=== PATIENT | female | born 2000 | race Caucasian/White ===

== ENCOUNTER → 2018-12-18 06:49 | Outpatient (CLI) | payer SELFPAY ==
[2018-12-18 07:43] LABS: Glucose 75GTT - Fasting 96 mg/dL (70-99)
[2018-12-18 07:55] LABS: Free T3 3.1 pg/mL (2.18-3.98); T4 Free Direct 0.94 ng/dL (0.76-1.46); Thyroid Stim Hormone (TSH) 5.14 uIU/mL (0.358-3.74)
[2018-12-18 09:16] LABS: Glucose 75GTT - 60 minutes 85 mg/dL (100-160)
[2018-12-18 09:20] LABS: Glucose 75GTT - 30 minutes 173 mg/dL (100-160)
[2018-12-18 09:20] LABS: Insulin 75GTT - Fasting 28.4 mU/L (2.6-37.6)
[2018-12-18 09:30] LABS: Insulin 75GTT - 60 min 219.6 mU/L (Not Estab)
[2018-12-18 10:42] LABS: Glucose 75GTT - 120 minutes 84 mg/dL (70-140)
[2018-12-18 10:52] LABS: Insulin 75GTT - 120 min 39.3 mU/L (Not Estab.)
[2018-12-19 11:00] LABS: Ferritin 30 ng/mL (8-252)
[2018-12-20 15:33] LABS: Thyroid Peroxidase AB 8 IU/mL (0-34)
[2018-12-20 15:53] LABS: Thyroglobulin Antibody < 1.0 IU/mL (0.0-0.9)
== END ==
PROVIDERS: Family Provider Pediatrics; PCP Pediatrics; Referring Provider Obstetrics & Gynecology; Visit Provider Obstetrics & Gynecology
DX: N91.4 Secondary oligomenorrhea (principal); R79.89 Other specified abnormal findings of blood chemistry; Z13.1 Encounter for screening for diabetes mellitus
CPT/HCPCS: 36415; 82728; 82951; 82952; 83525; 84439; 84443; 84481; 86376; 86800

== ENCOUNTER → 2018-12-25 09:28 | Outpatient (CLI) | payer SELFPAY ==
[2013-06-01 19:34] VITALS: BMI 32.2
[2018-12-25 11:40] LABS: Estradiol 30.9 pg/mL; Follicle Stimulating Hormone 5.7 mIU/mL; Free T3 2.8 pg/mL (2.18-3.98); Prolactin 17.1 ng/mL; T4 Free Direct 0.88 ng/dL (0.76-1.46); Thyroid Stim Hormone (TSH) 2.77 uIU/mL (0.358-3.74)
[2018-12-26 04:07] LABS: DHEA Sulfate 368.7 ug/dL (110.0-431.7)
[2018-12-26 16:45] LABS: Sex Hormone-binding Globulin 33.3 nmol/L (24.6-122.0)
[2018-12-28 15:10] LABS: 17-Hydroxyprogesterone 27 ng/dL (.)
== END ==
PROVIDERS: Family Provider Pediatrics; PCP Pediatrics; Referring Provider Obstetrics & Gynecology; Visit Provider Obstetrics & Gynecology
DX: N91.4 Secondary oligomenorrhea (principal); Z68.41 Body mass index [BMI] 40.0-44.9, adult; E03.9 Hypothyroidism, unspecified
CPT/HCPCS: 36415; 82533; 82627; 82670; 83001; 83498; 84146; 84270; 84403; 84439; 84443; 84481; 82626

== ENCOUNTER → 2019-08-08 07:53 | Outpatient (CLI) | payer SELFPAY ==
[2013-06-01 19:34] VITALS: BMI 32.2
[2019-08-08 09:31] LABS: Insulin 19.8 mU/L (2.6-37.6); Progesterone Level 10.24 ng/mL (See Comment)
[2019-08-08 09:34] LABS: Free T3 3.1 pg/mL (2.18-3.98); Glucose 97 mg/dL (74-106); Prolactin 32.6 ng/mL; Thyroid Stim Hormone (TSH) 2.24 uIU/mL (0.358-3.74)
[2019-08-09 15:48] LABS: Sex Hormone-binding Globulin 25.3 nmol/L (24.6-122.0)
== END ==
PROVIDERS: PCP Pediatrics; Referring Provider Obstetrics & Gynecology; Visit Provider Obstetrics & Gynecology
DX: E03.9 Hypothyroidism, unspecified (principal); N91.4 Secondary oligomenorrhea
CPT/HCPCS: 36415; 82627; 82947; 83525; 84144; 84146; 84270; 84439; 84443; 84481; 82626

== ENCOUNTER → 2020-03-10 13:23 | Outpatient (CLI) | payer SELFPAY ==
[2013-06-01 19:34] VITALS: BMI 32.2
[2020-03-10 14:50] LABS: Hematocrit 37.5 % (37-47); Hemoglobin 12.7 g/dL (12.0-15.0); Mean Corp Hgb Conc 33.9 g/dL (32-36); Mean Corpuscular Hgb 29.3 pg (27.0-32.0); Mean Corpuscular Volume 86.6 fL (81-99); Mean Platelet Vol. 9.3 fl (6.2-12.0); Platelet Count 347 K/mm3 (150-450); Red Blood Count 4.33 M/mm3 (4.2-5.4); White Blood Count 7.9 K/mm3 (4.4-11.0)
[2020-03-10 15:28] LABS: Ferritin 23 ng/mL (8-252); Iron 77 ug/dL (50-170)
== END ==
PROVIDERS: PCP Family Medicine; Referring Provider Internal Medicine Pulmonary Disease; Visit Provider Internal Medicine Pulmonary Disease
DX: G25.81 Restless legs syndrome (principal); G47.10 Hypersomnia, unspecified
CPT/HCPCS: 36415; 82728; 83540; 85027

== ENCOUNTER → 2020-09-24 16:18 | Outpatient (CLI) | payer SELFPAY ==
[2013-06-01 19:34] VITALS: BMI 32.2
[2020-09-24 17:37] LABS: Ferritin 23 ng/mL (8-252)
== END ==
PROVIDERS: PCP Family Medicine; Referring Provider Internal Medicine Pulmonary Disease; Visit Provider Internal Medicine Pulmonary Disease
DX: G25.81 Restless legs syndrome (principal); G47.10 Hypersomnia, unspecified
CPT/HCPCS: 36415; 82728

== ENCOUNTER → 2020-09-24 | Outpatient (CLI) | payer SELFPAY ==
[2013-06-01 19:34] VITALS: BMI 32.2
[2020-10-02 14:31] LABS: HPV APTIMA, High Risk Negative (Negative)
[2020-10-02 14:32] LABS: HPV Reflexed? YES, CHARGE PATIENT
== END | disposition home or self-care (01) ==
LOC: WOBLAB 16:36
PROVIDERS: PCP Family Medicine; Visit Provider Obstetrics & Gynecology
DX: Z12.4 Encounter for screening for malignant neoplasm of cervix (principal)
CPT/HCPCS: 87624; 88175; G0145

== ENCOUNTER → 2021-02-12 08:18 | Outpatient (CLI) | payer SELFPAY ==
[2013-06-01 19:34] VITALS: BMI 32.2
[2021-02-12 10:21] LABS: Ferritin 32 ng/mL (8-252)
== END ==
PROVIDERS: PCP Family Medicine; Referring Provider Internal Medicine Pulmonary Disease; Visit Provider Internal Medicine Pulmonary Disease
DX: E61.1 Iron deficiency (principal)
CPT/HCPCS: 36415; 82728

== ENCOUNTER → 2021-09-01 | Outpatient (CLI) | payer SELFPAY ==
[2021-09-01 11:15] LABS: Anion Gap 8 (5-15); BUN 15 mg/dL (7-18); BUN/Creat Ratio 23.3 RATIO (10-20); Calcium,Total 9.5 mg/dL (8.5-10.1); Chloride 105 mmol/L (98-107); Creatinine, Serum 0.64 mg/dL (0.55-1.02); EST Glomerular Filtration Rate 121 mL/min (>60); Est Glom Filt Rate - Afr Amer 147 mL/min (>60); Glucose 95 mg/dL (74-106); Potassium 3.9 mmol/L (3.5-5.1); Sodium Level 137 mmol/L (136-145)
[2021-09-01 12:07] LABS: Ferritin 24 ng/mL (8-252)
== END | disposition home or self-care (01) ==
PROVIDERS: PCP Family Medicine; Referring Provider Internal Medicine Pulmonary Disease; Visit Provider Internal Medicine Pulmonary Disease
DX: E61.1 Iron deficiency (principal); I10 Essential (primary) hypertension
CPT/HCPCS: 36415; 80048; 82728

== ENCOUNTER → 2022-05-25 | Outpatient (CLI) | payer SELFPAY ==
[2022-05-25 18:07] LABS: Estradiol 40.6 pg/mL; Luteinizing Hormone 2.1 mIU/mL; Progesterone Level 0.84 ng/mL (See Comment); Prolactin 16.5 ng/mL; T4 Free Direct 0.95 ng/dL (0.76-1.46); Thyroid Stim Hormone (TSH) 3.55 uIU/mL (0.358-3.74)
[2022-05-25 18:36] LABS: Hemoglobin A1c 5.6 % (3.8-5.6)
[2022-06-04 13:30] LABS: 17-Hydroxyprogesterone 25 ng/dL (.)
== END | disposition home or self-care (01) ==
LOC: WOBLAB 16:14
PROVIDERS: PCP Family Medicine; Visit Provider Student in an Organized Health Care Education/Training Program
DX: N93.9 Abnormal uterine and vaginal bleeding, unspecified (principal)
CPT/HCPCS: 36415; 82670; 83001; 83002; 83036; 83498; 84144; 84146; 84439; 84443

== ENCOUNTER → 2022-12-08 | Outpatient (CLI) | payer SELFPAY ==
[2022-12-08 11:10] LABS: Hematocrit 37.2 % (37-47); Hemoglobin 12.5 g/dL (12.0-15.0); Mean Corp Hgb Conc 33.6 g/dL (32-36); Mean Corpuscular Hgb 29.3 pg (27.0-32.0); Mean Corpuscular Volume 87.1 fL (81-99); Mean Platelet Vol. 9.1 fl (6.2-12.0); Platelet Count 322 K/mm3 (150-450); RBC Distribution Width CV 12.7 % (11.6-14.6); RBC Distribution Width SD 39.9 fl (35.1-43.9); Red Blood Count 4.27 M/mm3 (4.2-5.4); White Blood Count 6.3 K/mm3 (4.4-11.0)
[2022-12-08 11:42] LABS: Thyroid Stim Hormone (TSH) 2.09 uIU/mL (0.358-3.74)
== END | disposition home or self-care (01) ==
LOC: LAB 10:20
PROVIDERS: PCP Family Medicine; Referring Provider Family Medicine; Visit Provider Family Medicine
DX: N92.0 Excessive and frequent menstruation with regular cycle (principal)
CPT/HCPCS: 36415; 84443; 85027

== ENCOUNTER → 2023-07-25 | Outpatient (CLI) | payer OTHER, SELFPAY ==
[2023-07-25 13:10] LABS: Anion Gap 4 (5-15); BUN 13 mg/dL (7-18); Calcium,Total 9.5 mg/dL (8.5-10.1); Chloride 105 mmol/L (98-107); Creatinine, Serum 0.62 mg/dL (0.55-1.02); EST Glomerular Filtration Rate 125 mL/min (>60); Est Glom Filt Rate - Afr Amer 151 mL/min (>60); Glucose 91 mg/dL (74-106); Potassium 4.1 mmol/L (3.5-5.1); Sodium Level 137 mmol/L (136-145)
== END | disposition home or self-care (01) ==
LOC: LAB 11:18
PROVIDERS: PCP Family Medicine; Referring Provider Family Medicine; Visit Provider Family Medicine
DX: I10 Essential (primary) hypertension (principal)
CPT/HCPCS: 36415; 80048

== ENCOUNTER → 2025-01-22 | Outpatient (CLI) | payer OTHER, SELFPAY ==
--- OUTSIDE RECORDS SUMMARY | 2025-01-22 06:50 | XMS RPT_ITS | CCD ---
Author Organization [facility] Care Team Providers Care Promotions Director Name Role Phone CELINE LEONE MD Consulting Unavailable MURIEL GORDON Attending Unavailable MURIEL GORDON Primary Care Unavailable MURIEL GORDON Admitting Unavailable PROVIDER, UNKNOWN Consulting Unavailable TRACY GONZALEZ APRN, CNP Primary Care Phys [facility] TRACY GONZALEZ APRN, CNP Primary Care U nata AGUILAR MD, MACKENZIE Attending Unavailable LAUREN ARTEAGA, MACKENZIE Attending Unavailable TRACY GONZALEZ APRN, CNP Primary Care U nata AGUILAR MD, MACKENZIE Attending Unavailable ALFIE Ortiz CNP, TRACY Anne Primary Care U Bekah Kiser Referring Unavailable Brad Cotter Attending Unavailable Bekah Lopez Primary Care Unavailable Bekah Lopez Referring Unavailable Bekah Lopez Primary Care Unavailable Bekah Lopez Attending Unavailable ALFIE Ortiz CNP, TRACY Anne Primary Care U JEANCARLOS Nicole Attending Unavailable Medications Current Medications Medication Drug Class(es) Dates Sig (Normalized) Sig (Original) escitalopram 10 mg oral tablet (2 sources) Serotonin Reuptake Inhibitor Start: 02-28-2023 take 1 tablet by mouth once daily escitalopram 10 mg oral tablet TAKE ONE TABLET BY MOUTH DAILY Start Date: 02/28/23 Status: Ordered Repeat number: 1 ferrous sulfate (1 source) Start: 02-28-2023 ferrous sulfate Oral, 0 Refill(s) Start Date: 02/28/23 Status: Ordered fluticasone propionate 0.05 mg/actuat metered dose nasal spray (4 sources) Corticosteroid Start: 06-01-2013 Fluticasone Propionate Active 1 SPRAY NASAL DAILY June 01, 2013 1:00am lisinopril 10 mg oral tablet (2 sources) Angiotensin Converting Enzyme Inhibitor Start: 02-28-2023 take 1 tablet by mouth once daily lisinopril 10 mg oral tablet TAKE ONE TABLET BY MOUTH DAILY Start Date: 02/28/23 Status: Ordered Repeat number: 1 metFORMIN hydrochloride 500 mg oral tablet (3 sources) Biguanide Start: 10-04-2024 MetFORMIN (Eqv-Fortamet) 500 mg oral tablet, EXTENDED RELEASE Dose : 500 mg = 1 tab(s), Oral, qDay, Okay to substitute for generic Glucophage XR, # 90 tab(s), 3 Refill(s), Pharmacy: [facility], Oligomenorrhea Insulin resistance, 161, cm, 10/04/24 9:00:00 EDT, Height, kg, 10/04/24 9:00:00 EDT, Dosing Weight Start Date: 10/04/24 Status: Ordered Quantity: 90.0 Unit: tab(s) Repeat number: 4 Indications: Oligomenorrhea, unspecified; Insulin resistance, unspecified; Start: 05-25-2023 MetFORMIN (Eqv -Fortamet) 1000 mg oral tablet, EXTENDED RELEASE Dose : 1,000 mg = 1 tab(s), Oral, qDay, Okay to substitute for generic Glucophage XR, # 60 tab(s), 1 Refill(s), Pharmacy: [facility], Menorrhagia Insulin resistance, 161, cm, 05/25/23 8:40:00 EST, Height, kg, 05/25/23 8:40:00 EST, Dosing Weight Start Date: 05/25/23 Status: Ordered Start: 03-14-2023 MetFORMIN (Eqv -Glucophage XR) 500 mg oral tablet, EXTENDED RELEASE Dose : 500 mg = 1 tab(s), Oral, qDay, # 30 tab(s), 1 Refill(s), Pharmacy: [facility], Oligomenorrhea Menorrhagia, 161, cm, 03/14/23 8:48:00 EST, Height, kg, 03/14/23 8:48:00 EST, Dosing Weight Start Date: 03/14/23 Status: Ordered Problems Problem Classification Problem Date Documented Da te Episodic/Chronic Essential hypertension (1 source) Essential (primary) hypertension; Translations: [Essential (primary) hypertension] Onset: 07-29-2023 Chronic Immunizations and screening for infectious disease (3 sources) Contact with and (suspected) exposure to other viral communicable diseases; Translations: [Contact with and (suspected) exposure to other viral communicable diseases] Onset: 02-06-2020 Episodic Malaise and fatigue (1 source) Other fatigue; Translations: [Other fatigue] Onset: 01-18-2024 Episodic Menstrual disorders (4 sources) Menorrhagia; Translations: [Oligomenorrhea] 03-14-2023 Chronic Other nutritional; endocrine; and metabolic disorders (2 sources) Body mass index 40+ - severely obese 03-14-2023 Chronic Other nutritional; endocrine; and metabolic disorders (2 sources) Insulin resistance 03-14-2023 Chronic Results Test Name Value Interpretation Reference Range Facility Jira Administrator Cytology Reporton 2024 Jira Administrator Cytology Report . Pathology Reports Accession: Collected Date/Time: Received Date/Time: Pathologist: [id number] 10/04/2024 09:25 EDT 10/04/2024 18:00 EDT Jira Administrator Cytology Report SPECIMEN: Specimen Description: Liquid Prep Reflex ASCUS+ Specimen: Cervical/Endocervica l Screening or Diagnostic: Screening RELEVANT HISTORY: LMP: 10/2024 SPECIMEN ADEQUACY: SATISFACTORY FOR EVALUATION Endocervical/Transfo rmational zone component present INTERPRETATION/RESUL TS: NEGATIVE FOR INTRAEPITHELIAL LESION OR MALIGNANCY COMMENT: This Pap Test was successfully processed and evaluated with the assistance of the [employer] ThinPrep Test Imaging System. Verified by Pathology report verified by [facility] Screened by: ASHLEY Electronically signed by Fatou KOVACS (ASCP) Sign-Out Date: 10/11/2024 11:27 Performing Lab: [facility], [address] [place] [address] Pathology Dept Disclaimer The Pap test is a screening test for cervical cancer. As evidenced by published data, it is subject to both inherent false negative and false positive results. Your patient's results should be interpreted in context with pertinent clinical history including gynecological examination. Normal [facility] Urgent Care Visit Reporton 1 Urgent Care Visit Report [facility] [address], [address] [place] [address] OFFICE VISIT Date of Service: 01/18/24 MR#: [id number] Acct: [id number] Name: LUIS EID Rep #: [id number] : 2000 Provider: CHANTELL Martinez Age/Sex: 23/F Location: [facility] Status: Signed Intake Vital Signs 09/24/20 16:36 01/18/24 12:07 Height 5 ft 3 in 5 ft 3 in Weight: 252 lb 4 oz BMI 44.6 BP 132/96 H Blood Pressure Location Lt brachial Position Sitting Respiration 16 Pulse 93 Pulse Source Monitor Temp 98.1 F Temp Source Oral Pulse Oximetry (%) 97 Oxygen Delivery Method room air Intake Visit Reasons: SORE THROAT, COUGH Chief Complaint: SORET THROAT Housecleaner Required: No Accompanied by: Self Is patient in pain?: No Allergies No Known Allergies Allergy (Verified 01/18/24 12:08) Medications ???Medication ???Instructions ???Recorded ???Confirmed ???Type amoxicillin 500 mg tablet 500 mg PO TID #42 tabs 01/18/24 01/18/24 Rx escitalopram oxalate 10 mg tablet 10 mg PO QDAY 01/18/24 01/18/24 History lisinopril 10 mg tablet 10 mg PO QDAY 01/18/24 01/18/24 History metformin 500 mg tablet,extended 1,000 mg PO QDAY 01/18/24 01/18/24 History release 24 hr PFS Medical History (Updated 01/18/24 @ 12:09 by Maria A De Los Santos MA) PCOS (polycystic ovarian syndrome) Anemia Hypertension Social History Smoking Status: Never smoker HPI HPI Chief Complaint: SORET THROAT Details: LUIS EID, is a 23 F who presents to the office today for initial evaluation congestion, sore throat times approximately 2 and half months. Patient notes November 02 while in [place] having sinus pressure and was prescribed 3-day course of antibiotic (unknown name) with partial improvement of symptoms though continuous postnasal drip and sore throat and nausea has persisted ever since. Occasional chills over the last several days. No complaints of fever, sweats, rash, cough, lightheadedness/dizz iness, emesis though does admit occasional nausea. No ulok-wwg-ludmvod products taken to assist. Patient requesting screening for mononucleosis, declining all other POC screening. No other associated symptoms and no other alleviating/aggravat ing factors. ROS Const Constitutional: No other (as above) Exam Const General: cooperative, healthy appearing and no acute distress Nutritional Appearance: average body habitus Orientation: alert, awake and oriented x3 HENMT Head: normal to inspection Ears: hearing grossly normal bilaterally, external ears normal, TM's normal bilaterally and EAC's normal Nose: external nose normal, nares normal, septum normal and no nasal discharge Face and sinus: normal facial exam, sinuses tender (left > right frontal) and face symmetric Mouth: oral mucosae normal, lip normal, tongue normal and oropharynx normal Throat: posterior oropharynx normal, tonsils w/ trace erythema, uvula midline and postnasal drainage (Purulent) Eyes General: appearance normal, both eyes and all related structures Neck Neck: normal visual inspection, full ROM, no meningeal signs, supple and lymphadenopathy (Bilateral anterior cervical lymph node swelling/tender to palpation) Neck mass: No Thyroid: thyroid normal Chest Chest palpation inspection: normal inspection of the chest Resp Effort Inspection: normal respiratory effort and able to speak in complete sentences Auscultation: Bilateral: Clear to Auscultation Cardio Palpation: normal PMI Rate: regular rate Rhythm: regular rhythm Heart Sounds: S1 normal, S2 normal, no gallops, no murmurs and no rubs Pulses: radial pulses present GI Inspection: normal to inspection Skin General: no rashes or lesions noted Neuro General: patient alert, patient awake and patient oriented x3 Cognition: normal cognition Speech: speech normal Psych Appearance: grossly normal Mental Status: mental status grossly normal Mood: congruent mood Affect: normal affect Speech and Movement: speech and movement normal Attitude: cooperative Diagnoses Acute frontal sinusitis, unspecified J01.10 Acute pharyngitis, unspecified J02.9 Assessment and Plan Assessment and Plan (1) Acute frontal sinusitis, unspecified: Status: Acute (2) Acute pharyngitis, unspecified: Status: Acute Plan: See POC results. Amoxicillin as prescribed today. Supportive measures as instructed today, with work/school excuse offered. Follow-up with PCP in 3 to 5 days should symptoms not improve, sooner should symptoms worsen or any other concerns develop. Patient states acknowledging understanding all the above Results POC Mononucleosis Office Mononucleosis Negative Last Edit by Maria A De Los Santos MA on 01/18/24 12:14 Coding Le (more content not included)... Normal [facility] Basic Metabolic Profile (BMP )on 07-25-2023 BUN/CRE 21.0 RATIO High 10-20 [facility] Comment on above: Performed By: #### L 500.2500 #### [facility] [address] [place], [address] CA,Total 9.5 mg/dL Normal 8.5-10.1 [facility] Comment on above: Performed By: #### L 500.2500 #### [facility] [address] [place], [address] Chloride [Moles/Vol] 105 mmol/L Normal 98-107 [facility] Comment on above: Performed By: #### L 500.2500 #### [facility] [address] [place], [address] CO2 [Moles/Vol] 28.0 mmol/L Normal 21.0-32.0 [facility] Comment on above: Performed By: #### L 500.2500 #### [facility] [address] [place], [address] Creatinine [Mass/Vol] 0.62 mg/dL Normal 0.55-1.02 [facility] Comment on above: Result Comment: The validity of the calculated GFR GFRAA in patients over 70 years has not been determined. Clinical correlation is essential. Performed By: #### L 500.2500 #### [facility] [address] [place], [address] EST GFR - AA 151 mL/min Normal >60 [facility] Comment on above: Result Comment: Afri can Haitian GFR Calc Performed By: #### L 500.2500 #### [facility] [address] [place], [address] GAP 4 Low 5-15 [facility] Comment on above: Performed By: #### L 500.2500 #### [facility] [address] [place], [address] GFR/1.73 sq M.predicted among non-blacks MDRD (S/P/Bld) [Vol rate/Area] 125 mL/min/{1.73_m2} Normal >60 [facility] Comment on above: Result Comment: Non- GFR Calc Performed By: #### L 500.2500 #### [facility] [address] [place], [address] Glucose [Mass/Vol] 91 mg/dL Normal 74-106 [facility] Comment on above: Performed By: #### L 500.2500 #### [facility] [address] [place], [address] Potassium [Moles/Vol] 4.1 mmol/L Normal 3.5-5.1 [facility] Comment on above: Performed By: #### L 500.2500 #### [facility] [address] [place], [address] Sodium [Moles/Vol] 137 mmol/L Normal 136-145 [facility] Comment on above: Performed By: #### L 500.2500 #### [facility] [address] [place], [address] Urea nitrogen [Mass/Vol] 13 mg/dL Normal 7-18 [facility] Comment on above: Performed By: #### L 500.2500 #### [facility] [address] [place], [address] Basophil percentageOrdered B y: Bekah Lopez on 07-25-2023 Chloride [Moles/Vol] 105 mmol/L 98-107 [facility] Glucose [Mass/Vol] 91 mg/dL 74-106 [facility] Potassium [Moles/Vol] 4.1 mmol/L 3.5-5.1 [facility] Sodium [Moles/Vol] 137 mmol/L 136-145 [facility] - Chemistry and C hemistry - challengeOrdered By: Bekah Lopez on 07-25-2023 CO2 [Moles/Vol] 28.0 mmol/L 21.0-32.0 [facility] Urea nitrogen/Creatinine [Mass ratio] 21.0 mg/mg 10-20 [facility] No Panel InformationOrdered By: Bekah Lopez on 07-25-2023 Estimated GFR (MDRD) Amer 151 mL/min >60 [facility] Comment on above: GFR Calc Estimated GFR (MDRD) Non-Af Amer 125 mL/min >60 [facility] Comment on above: Non- GFR Calc Serum or plasma calcium mehran urement (mass/volume)Ordered By: Bekah Lopez on 07-25-2023 Calcium [Mass/Vol] 9.5 mg/dL 8.5-10.1 [facility] Serum or plasma creatinine m easurement (mass/volume)Ordered By: Bekah Lopez on 07-25-2023 Creatinine [Mass/Vol] 0.62 mg/dL 0.55-1.02 [facility] Comment on above: The validity of the calculated GFR & GFRAA in patients over 70 years has not been determined. Clinical correlation is essential. Serum or plasma urea nitroge n measurement (mass/volume)Ordered By: Bekah Lopez on 07-25-2023 Urea nitrogen [Mass/Vol] 13 mg/dL 7-18 [facility] Thin prep Papanicolaou smear with manual screeningOrdered By: Bekah Lopez on 07-25-2023 Thin prep Papanicolaou smear with manual screening 4 5-15 [facility] US PELVIS NON-OB W/TRANSVAGI NALon 06-03-2023 US PELVIS NON-OB W/TRANSVAGINAL ORIGINAL EXAMINATION: TRANSVAGINAL PELVIC ULTRASOUND 06/03/2023 TECHNIQUE: Transvaginal pelvic ultrasound was performed. COMPARISON: None HISTORY: ORDERING SYSTEM PROVIDED HISTORY: Reason for Exam: evaluate endometrial thickness; hi risk hyperplasia FINDINGS: Measurements: Uterus: 7.1 x 3.6 x 5.2 cm. Endometrial stripe: 9.5 mm Right Ovary:3.5 x 3 x 2.0 cm Left Ovary: 2.6 x 2.9 x 2.4 cm Ultrasound Findings: Uterus: Uterus demonstrates normal myometrial echotexture. The region of the cervix demonstrates a 1.5 cm x 1 x 2.3 cm cyst associated with the vagina or a exophytic cervical nabothian cysts. Endometrial stripe: Endometrial stripe is within normal limits. Right Ovary: Right ovary is within normal limits. Left Ovary: Left ovary is within normal limits. Free Fluid: No evidence of free fluid. IMPRESSION: 1. No acute pelvic process. 2. 1.5 cm x 1 x 2.3 cm cyst associated with the vagina or exophytic cervical nabothian cyst. Interpreted by: Luis Daniel Rucker DO Preliminary Report By: Luis Daniel Rucker DO Electronically signed By Luis Daniel Rucker DO Dictated Date: 06/03/2023 4:14:44 PM Prelim Date: 06/03/2023 4:16:44 PM Sign Date: 06/03/2023 4:16:44 PM Ordering Provider: MACKENZIE Granados [facility]) ANDRO 03-03-2023 Androstenedione LCMS 90 ng/dL Normal 41-262 [facility]) Comment on above: Result Comment: This test was developed and its performance characteristics determined by [employer]. It has not been cleared or approved by the Food and Drug Administration. Performed At: [address] [id number] Salvador Haile MD Ph:[phone] Performed By: #### [id number] #### [address] [address] DHEASon 03-01-2023 DHEA-SO4 348.63 mcg/dL Normal 25.90-460.20 [facility], 1928–1983) Comment on above: Result Comment: No te - New Reference Range in effect 19 Performed By: #### P ROL, TESTO, INSLN, DHEAS #### [address] [address] #### VIDH, GLU #### [address] [address] GLUon 03-01-2023 Glucose [Mass/Vol] 105 mg/dL Normal 70-105 [facility] ([place]) Comment on above: Performed By: #### P ROL, TESTO, INSLN, DHEAS #### [place] [address] #### VIDH, GLU #### [address] [address] INSLNon 03-01-2023 Insulin 43.39 munit/L High 2.60-37.60 [facility] ([place]) Comment on above: Performed By: #### P ROL, TESTO, INSLN, DHEAS #### [place] [address] #### VIDH, GLU #### [address] [address] PROLon 03-01-2023 Prolactin 8.3 ng/mL Normal 2.0-30.0 [facility] ([place]) Comment on above: Performed By: #### P ROL, TESTO, INSLN, DHEAS #### [place] [address] #### VIDH, GLU #### [address] [address] TESTOon 03-01-2023 Testosterone Lvl 29.57 ng/dL Normal [facility] ([place]) Comment on above: Result Comment: Norm al Reference Ranges for Females: Female Premenopause Age 21-60 9.01-47.94 ng/dL Female Postmenopause Age 45-89 <7.00-45.62 ng/dL Performed By: #### P ROL, TESTO, INSLN, DHEAS #### [place] [address] #### VIDH, GLU #### [address] [address] VIDHon 03-01-2023 Vit. D 25-Hydroxy 19.7 ng/mL Normal [facility] ([place]) Comment on above: Result Comment: Inte rpretive Values Based on Total 25([place]) Vitamin D: Deficient <20 ng/mL Insufficient 20 - <30 ng/mL Sufficient 30-100 ng/mL Performed By: #### P ROL, TESTO, INSLN, DHEAS #### [place] [address] #### VIDH, GLU #### [place] [address] [address] Basophil percentageOrdered B y: Bekah Lopez on 12-08-2022 WBC (Bld) [#/Vol] 6.3 10*3/uL 4.4-11.0 [facility] Blood erythrocytes count (nu mber/volume)Ordered By: Bekah Lopez on 12-08-2022 RBC (Bld) [#/Vol] 4.27 10*6/uL 4.2-5.4 [facility] Blood hemoglobin measurement (mass/volume)Ordered By: Bekah Lopez on 12-08-2022 Hemoglobin (Bld) [Mass/Vol] 12.5 g/dL 12.0-15.0 [facility] Blood platelet mean volumeOr dered By: Bekah Lopez on 12-08-2022 Platelet mean volume (Bld) [Entitic vol] 9.1 fL 6.2-12.0 [facility] Determination of erythrocyte mean corpuscular volume (MCV)Ordered By: Bekah Lopez on 12-08-2022 MCV (RBC) [Entitic vol] 87.1 fL 81-99 [facility] Hematocrit Auto (Bld) [Volum e fraction]Ordered By: Bekah Lopez on 12-08-2022 Hematocrit (Bld) [Volume fraction] 37.2 % 37-47 [facility] - Hematology and Cell countsOrdered By: Bekah Lopez on 12-08-2022 Erythrocyte distribution width (RBC) [Entitic vol] 39.9 fL 35.1-43.9 [facility] Erythrocyte distribution width (RBC) [Ratio] 12.7 % 11.6-14.6 [facility] MCH (RBC) [Entitic mass] 29.3 pg 27.0-32.0 [facility] MCHC Auto (RBC) [Mass/Vol]Or dered By: Bekah Lopez on 12-08-2022 MCHC (RBC) [Mass/Vol] 33.6 g/dL 32-36 [facility] No Panel InformationOrdered By: Bekah Lopez on 12-08-2022 Thyroid Stimulating Hormone (TSH) 2.09 uIU/mL 0.358-3.74 [facility] Platelets bldOrdered By: Nguyễn Lopez on 12-08-2022 Platelets (Bld) [#/Vol] 322 10*3/uL 150-450 [facility] - Chemistry and C hemistry - challengeOrdered By: Dr. Sheets on 05-25-2022 Free T4 [Mass/Vol] 0.95 ng/dL 0.76-1.46 [facility] No Panel InformationOrdered By: Dr. Sheets on 05-25-2022 Follicle Stimulating Hormone 7.0 mIU/mL [facility] Comment on above: NORMAL REFERENCE RAN GES FEMALE FOLLICULAR 2.3 - 12.6 mIU/mL MID-CYCLE PEAK 5.2 - 17.5 mIU/mL LUTEAL 1.7 - 12.9 mIU/mL POST-MENOPAUSAL ON MHT 5.9 - 72.8 mIU/mL NOT ON MHT 12.7 - 132.2 mlU/mL MALE 0.7 - 10.8 mIU/mL Luteinizing Hormone 2.1 mIU/mL [facility] Comment on above: NORMAL REFERENCE RAN GES FEMALE FOLLICULAR 1.9 - 26.2 mIU/mL MID-CYCLE PEAK 22.8 - 76.1 mIU/mL LUTEAL 0.6 - 16.6 mIU/mL POST-MENOPAUSAL ON MHT 1.1 - 52.4 mIU/mL NOT ON MHT 8.6 - 61.8 mIU/mL MALE 1.2 - 10.6 mIU/mL Thyroid Stimulating Hormone (TSH) 3.55 uIU/mL 0.358-3.74 [facility] Serum or plasma estradiol (E 2) measurement (mass/volume)Ordered By: Dr. Sheets on 05-25-2022 E2 [Mass/Vol] 40.6 pg/mL [facility] Comment on above: NORMAL REFERENCE RAN GES FEMALE FOLLICULAR 21.4 - 164.8 pg/mL MID-CYCLE PEAK 49.9 - 367.2 pg/mL LUTEAL 40.2 - 259.0 pg/mL POST-MENOPAUSAL ON MHT <11.0 - 462.1 pg/mL NOT ON MHT <11.0 - 58.3 pg/mL MALE <11.0 - 52.5 pg/mL NOTE:[employer] HAS CONFIRMED THE DRUG FULVETRANT (FASLODEX) MAY CAUSE FALSELY ELEVATED ESTRADIOL RESULTS WHEN USING THIS TEST METHOD. IF PATIENT IS TAKING FULVESTRANT AN ALTERNATIVE METHOD SHOULD BE USED TO DETERMINE ESTRADIOL CONCENTRATION. Serum or plasma progesterone measurement (mass/volume)Ordered By: Dr. Sheets on 05-25-2022 Progesterone [Mass/Vol] 0.84 ng/mL See Comment [facility] Comment on above: Progesterone Referen ce Table: UNITS Female: Follicular 0.15 - 1.40 ng/mL Luteal 3.34 - 25.56 ng/mL Mid-luteal 4.44 - 28.03 ng/mL Postmenopausal 0.0 - 0.73 ng/mL : 1st Trimester 11.22 - 90.00 ng/mL 2nd Trimester 25.55 - 89.40 ng/mL 3rd Trimester 48.40 -422.50 ng/mL Serum or plasma prolactin me asurement (mass/volume)Ordered By: Dr. Sheets on 05-25-2022 Prolactin [Mass/Vol] 16.5 ng/mL [facility] Comment on above: NORMAL REFERENCE RAN GES FEMALE NON- 2.2 - 30.3 ng/mL 8.1 - 347.6 ng/mL POST-MENOPAUSAL 0.7 - 31.5 ng/mL MALE 2.5 - 17.4 ng/mL Whole blood hemoglobin A1c/t otal hemoglobin ratio (mass fraction)Ordered By: Dr. Sheets on 05-25-2022 HbA1c (Bld) [Mass fraction] 5.6 % 3.8-5.6 [facility] Comment on above: Normal < 5.7 % Predi abetic 5.7 - 6.4 % Diabetic >or= 6.5 % Please note range changes. Basophil percentageon 2021 Chloride [Moles/Vol] 105 mmol/L 98-107 [facility] Work Phone: Glucose [Mass/Vol] 95 mg/dL 74-106 [facility] Work Phone: Potassium [Moles/Vol] 3.9 mmol/L 3.5-5.1 [facility] Work Phone: Sodium [Moles/Vol] 137 mmol/L 136-145 [facility] Work Phone: Laboratory - Chemistry and C hemistry - challengeon 09-01-2021 CO2 [Moles/Vol] 24.0 mmol/L 21.0-32.0 [facility] Work Phone: Urea nitrogen/Creatinine [Mass ratio] 23.3 mg/mg 10-20 [facility] Work Phone: No Panel Informationon 09-01 Estimated GFR (MDRD) Amer 147 mL/min >60 [facility] Work Phone: Comment on above: GFR Calc Estimated GFR (MDRD) Non-Af Amer 121 mL/min >60 [facility] Work Phone: Comment on above: Non- GFR Calc Serum or plasma calcium mehran urement (mass/volume)on 09-01-2021 Calcium [Mass/Vol] 9.5 mg/dL 8.5-10.1 [facility] Work Phone: Serum or plasma creatinine m easurement (mass/volume)on 09-01-2021 Creatinine [Mass/Vol] 0.64 mg/dL 0.55-1.02 [facility] Work Phone: Comment on above: The validity of the calculated GFR & GFRAA in patients over 70 years has not been determined. Clinical correlation is essential. Serum or plasma ferritin angelia surement (mass/volume)on 09-01-2021 Ferritin [Mass/Vol] 24 ng/mL 8-252 [facility] Work Phone: Serum or plasma urea nitroge n measurement (mass/volume)on 09-01-2021 Urea nitrogen [Mass/Vol] 15 mg/dL 7-18 [facility] Work Phone: Thin prep Papanicolaou smear with manual screeningon 09-01-2021 Thin prep Papanicolaou smear with manual screening 8 5-15 [facility] Work Phone: CNOVon 06-30-2020 CNOV Office Visit ([facility]) LUIS EID ([id number]) 2000 F Date Time Provider Department 06/30/20 10:45 AM JERMAN JC [facility] During your visit today, we recorded the following information about you: Temperature Pulse Respiration Blood pressure 98.2 degrees 90/minute 16/minute 120/76 Weight 112 kg Jerman Jc MD 06/30/2020 11:26 AM Signed Patient presents with: Neck Pain: right side of neck, lump x 1 day HPI: Lump noticed on the right side of the neck since yesterday. Pain radiates into the ear Positive symptoms: right side slight Sore throat, Malaise, Fatigue, right Headache, Nausea, has had some intermittent bumpy rashes Negative symptoms: Cough, Shortness of breath, throat closing, Nasal Congestion, Rhinorrhea, Fever, Chills, Body Aches, Vomiting, Diarrhea, throat tightness, scalp sores, cat bite/scratch, axillary tenderness OTC: Ibuprofen PAST MEDICAL HISTORY Diagnosis Date - Anxiety and depression - Borderline diabetes - Restless leg syndrome - Sleep apnea PAST SURGICAL HISTORY Procedure Laterality Date - NONE MEDICATIONS: Current Outpatient Medications Medication Sig - metFORMIN ER (GLUCOPHAGE XR) 500 mg 24 hr tablet Take 2,000 mg by mouth once daily. - rOPINIRole (REQUIP) 0.25 mg tablet Take 0.5 mg by mouth daily at bedtime. - sertraline (ZOLOFT) 100 mg tablet Take 100 mg by mouth once daily. No current facility-administere d medications for this visit. ALLERGIES: ALLERGIES Allergen Reactions - Seasonal Allergies Other: See Comments Nasal congestion, sneezing VITALS: BP 120/76 Pulse 90 Temp 36.8 ?C (98.2 ?F) (Tympanic) Resp 16 Wt 112 kg (247 lb) LMP 12/03/2013 SpO2 98% PHYSICAL EXAM: GEN: Pleasant, in no acute distress. HEENT: PERRL, EOMI, conjunctiva clear. no ulcers, blisters, or erythema found in the right posterior scalp Ears: canals clear. TMs without erythema, bulge, or effusion Sinuses: non-tender frontal sinus, non-tender maxillary sinuses Throat: moist mucous membranes, no erythema, no exudate, no wall deviation Neck: supple, no thyromegaly, visible protrusion mid right posterior chain without overlying erythema, tender probable enlarged lymph node (2cm) mid posterior cervical chain which is very tender to palpation, some allodynia of the skin over the swelling. HEART: regular rate and rhythm, no murmurs LUNGS: clear to auscultation, no wheezes or crackles, no increased WOB ASSESSMENT/PLAN: 1. Posterior cervical lymphadenopathy - ICD9: 785.6, ICD10: R59.0 Appears to be reactive right posterior lymphadenopathy. No identified surface source of infection. Differential includes viral illness including re-activation of herpes zoster in the right upper cervical distribution. Start - ACYCLOVIR 800 MG TABLET OTC analgesia as needed. Monitor for rash/vesicles which would confirm shingles. Follow up with concerning symptoms or failure to improve. Jerman Jc MD Referring Provider: SELF [200] Allergies As of Date: 06/30/2020 Noted Allergy Reaction SEASONAL ALLERGIES 02/14/2013 14 - Other: See Comments Comments: Nasal congestion, sneezing Date Reviewed: 06/30/2020 Reviewed by: Keira Flores Ma - Fully Assessed Reason for Visit: Neck Pain [135] Cmt: right side of neck, lump x 1 day Primary Visit Diagnosis:Posterior cervical lymphadenopathy [R59.0] Order(s):acyclovir (ZOVIRAX) 800 mg tabletTake 1 tablet by mouth five times daily for 7 days. Take at first signs of outbreak.Disp: 35 tabletRfl: 0 Prescriptions as of 06/30/2020 Sig: METFORMIN ER 500 MG TABLET,EX* Take 2,000 mg by mouth once d* ROPINIROLE 0.25 MG TABLET Take 0.5 mg by mouth daily at* SERTRALINE 100 MG TABLET Take 100 mg by mouth once henry* ACYCLOVIR 800 MG TABLET Take 1 tablet by mouth five t* Problem List As Of Date: 06/30/2020 (None) Prescriptions ordered this encounter Disp Refills Start End ACYCLOVIR 800 MG TABLET 35 t* 0 06/30/2020 07/07/2020 Route: ORAL Sig: Take 1 tablet by mouth five times daily for 7 days. Take at first signs of outbreak. 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 This test was developed and its performance characteristics determined by [facility]'s [facility] Pathology and Laboratory Medicine [place]. This test has been authorized by FDA under an Emergency Use Authorization (EUA). This test has been validated in accordance with the FDA's Guidance Document Policy for Diagnostics Testing in Laboratories Certified to Perform High Complexity Testing under CLIA prior to Emergency use Authorization for Coronavirus Disease 2019 during the Public Health Emergency issued on June 02, [place] [address] Oj oRque III, M.D. 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 [facility] Comment on above: Result Comment: Nega tive for This test was developed and its performance characteristics determined by [facility]'s [facility] Laboratory [facility] [place]. This test has been authorized by FDA under an Emergency Use Authorization (EUA). This test has been validated in accordance with the FDA's Guidance Document Policy for Diagnostics Testing in Laboratories Certified to Perform High Complexity Testing under CLIA prior to Emergency use Authorization for Coronavirus Disease 2019 during the Public Health Emergency issued on June 02, 2019. COVID19 (SARS This test was developed and its performance characteristics determined by [facility] Laboratory [facility] [place]. This test has been authorized by FDA under an Emergency Use Authorization (EUA). This test has been validated in accordance with the FDA's Guidance Document Policy for Diagnostics Testing in Laboratories Certified to Perform High Complexity Testing under CLIA prior to Emergency use Authorization for Coronavirus Disease 2019 during the Public Health Emergency issued on June 02, 2019. CoV2) by PCR. This test was developed and its performance characteristics determined by [facility]'s [facility] [place]. This test has been authorized by FDA under an Emergency Use Authorization (EUA). This test has been validated in accordance with the FDA's Guidance Document Policy for Diagnostics Testing in Laboratories Certified to Perform High Complexity Testing under CLIA prior to Emergency use Authorization for Coronavirus Disease 2019 during the Public Health Emergency issued on June 02, 2019. 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 Start: 10-04-2024 End: 10-08-2024 Encounter for gynecological examination (general) (routine) without abnormal findings JEANCARLOS LOGAN Facility:[facility] Start: 10-04-2024 End: 10-08-2024 Outreach Lab JEANCARLOS LOGAN GRANITE INSTALLER-AG SERVICE MANAGER [facility] Start: 01-18-2024 End: 01-18-2024 ambulatory Bekah Lopez Facility:[facility] Start: 07-25-2023 End: 07-25-2023 ambulatory [facility] Work Phone: Start: 07-25-2023 End: 07-25-2023 Patient encounter procedure [facility] Work Phone: Start: 07-25-2023 End: 07-25-2023 ambulatory Bekah Lopez Facility:[facility] Start: 06-03-2023 End: 06-04-2023 ambulatory MACKENZIE AGUILAR MD Facility:[facility] Start: 06-03-2023 End: 06-03-2023 Patient encounter procedure MACKENZIE AGUILAR MD [facility] Start: 06-01-2023 ambulatory TRACY Anne FREDI ANNIA GRANITE INSTALLER - AG SERVICE MANAGER Facility:[facility] Start: 03-01-2023 End: 03-02-2023 ambulatory MACKENZIE AGUILAR MD Facility:[facility] Start: 12-08-2022 End: 12-08-2022 ambulatory [facility] Work Phone: Start: 12-08-2022 End: 12-08-2022 [facility] Start: 05-25-2022 End: 05-25-2022 ambulatory [facility] Work Phone: Start: 05-25-2022 End: 05-25-2022 Patient encounter procedure [facility], [place] manager chemistry Off Start: 09-01-2021 End: 09-01-2021 Patient encounter procedure [facility] Start: 02-06-2020 End: 02-06-2020 Patient encounter procedure CELINE ARTEAGA [facility] Procedures Date Procedure Procedure Detail Performing Clinician None (qualifier value) KAIT AGUILAR MD Plan of Treatment Date Care Activity Detail Author 17-Hydroxyprogestero ne [Mass/volume] in Serum or Plasma [facility] Payers Date Payer Category Payer Private Health Insurance [id number] 2023 Unknown [id number] 2023 Self-pay [id number] 1998 Unknown [id number] 1998 Unknown [id number] [id number] 1998 Unknown [id number] 2.16.8 [id number] 1998 Unknown [id number] 2.16.8 [id number] 1998 Unknown [id number] 2.16. [id number] Unknown [id number] Unknown [id number] Unknown [id number] 2.16.8 [id number] Unknown [id number] 2.16.8 [id number] Social History Date Type Detail Facility Start: 06-01-2013 End: 06-01-2013 Tobacco smoking status MDIS Unknown if ever smoked [facility] Start: 2000 Sex Assigned At Female [facility] Start: 02-28-2023 End: 07-25-2023 Tobacco smoking status Never smoked tobacco (finding) [facility] Sex Assigned At [facility] Sex Female (finding) [facility] Clinical Note 06-03-2023 Note Date & Type Note Facility 06-03-2023 Note ORIGINAL EXAMINATION: TRANSVAGINAL PELVIC ULTRASOUND 06/03/2023 TECHNIQUE: Transvaginal pelvic ultrasound was performed. COMPARISON: None HISTORY: ORDERING SYSTEM PROVIDED HISTORY: Reason for Exam: evaluate endometrial thickness; hi risk hyperplasia FINDINGS: Measurements: Uterus: 7.1 x 3.6 x 5.2 cm. Endometrial stripe: 9.5 mm Right Ovary:3.5 x 3 x 2.0 cm Left Ovary: 2.6 x 2.9 x 2.4 cm Ultrasound Findings: Uterus: Uterus demonstrates normal myometrial echotexture. The region of the cervix demonstrates a 1.5 cm x 1 x 2.3 cm cyst associated with the vagina or a exophytic cervical nabothian cysts. Endometrial stripe: Endometrial stripe is within normal limits. Right Ovary: Right ovary is within normal limits. Left Ovary: Left ovary is within normal limits. Free Fluid: No evidence of free fluid. IMPRESSION: 1. No acute pelvic process. 2. 1.5 cm x 1 x 2.3 cm cyst associated with the vagina or exophytic cervical nabothian cyst. Interpreted by: Luis Daniel Rucker DO Preliminary Report By: Luis Daniel Rucker DO Electronically signed By Luis Daniel Rucker DO Dictated Date: 06/03/2023 4:14:44 PM Prelim Date: 06/03/2023 4:16:44 PM Sign Date: 06/03/2023 4:16:44 PM Ordering Provider: [facility] Progress note 06-30-2020 Note Date & Type Note Facility 06-30-2020 Note HNO ID: [id number] Author: Jerman Jc Service: ? Author Type: Physician Type: Progress Notes Filed: 06/30/2020 11:26 AM Note Text: Patient presents with: Neck Pain: right side of neck, lump x 1 day HPI: Lump noticed on the right side of the neck since yesterday. Pain radiates into the ear Positive symptoms: right side slight Sore throat, Malaise, Fatigue, right Headache, Nausea, has had some intermittent bumpy rashes Negative symptoms: Cough, Shortness of breath, throat closing, Nasal Congestion, Rhinorrhea, Fever, Chills, Body Aches, Vomiting, Diarrhea, throat tightness, scalp sores, cat bite/scratch, axillary tenderness OTC: Ibuprofen PAST MEDICAL HISTORY Diagnosis Date - Anxiety and depression - Borderline diabetes - Restless leg syndrome - Sleep apnea PAST SURGICAL HISTORY Procedure Laterality Date - NONE MEDICATIONS: Current Outpatient Medications Medication Sig - metFORMIN ER (GLUCOPHAGE XR) 500 mg 24 hr tablet Take 2,000 mg by mouth once daily. - rOPINIRole (REQUIP) 0.25 mg tablet Take 0.5 mg by mouth daily at bedtime. - sertraline (ZOLOFT) 100 mg tablet Take 100 mg by mouth once daily. No current facility-administered medications for this visit. ALLERGIES: ALLERGIES Allergen Reactions - Seasonal Allergies Other: See Comments Nasal congestion, sneezing VITALS: BP 120/76 Pulse 90 Temp 36.8 ?C (98.2 ?F) (Tympanic) Resp 16 Wt 112 kg (247 lb) LMP 12/03/2013 SpO2 98% PHYSICAL EXAM: GEN: Pleasant, in no acute distress. HEENT: PERRL, EOMI, conjunctiva clear. no ulcers, blisters, or erythema found in the right posterior scalp Ears: canals clear. TMs without erythema, bulge, or effusion Sinuses: non-tender frontal sinus, non-tender maxillary sinuses Throat: moist mucous membranes, no erythema, no exudate, no wall deviation Neck: supple, no thyromegaly, visible protrusion mid right posterior chain without overlying erythema, tender probable enlarged lymph node (2cm) mid posterior cervical chain which is very tender to palpation, some allodynia of the skin over the swelling. HEART: regular rate and rhythm, no murmurs LUNGS: clear to auscultation, no wheezes or crackles, no increased WOB ASSESSMENT/PLAN: 1. Posterior cervical lymphadenopathy - ICD9: 785.6, ICD10: R59.0 Appears to be reactive right posterior lymphadenopathy. No identified surface source of infection. Differential includes viral illness including re-activation of herpes zoster in the right upper cervical distribution. Start - ACYCLOVIR 800 MG TABLET OTC analgesia as needed. Monitor for rash/vesicles which would confirm shingles. Follow up with concerning symptoms or failure to improve. Jerman Jc MD [facility] Evaluation + Plan note Radiology Note Date & Type Note Facility Evaluation + Plan note Future Appointments Appointment Date:06/13/2023 01:00:00 PM Scheduled Provider: Location:[facility] Appointment Type:NUT Diet Visit Individual Appointment Date:07/25/2023 10:00:00 AM Scheduled Provider:MACKENZIE AGUILAR MD Location:[facility] Appointment Type: OV Future Scheduled TestsUS Pelvis Non-OB W/Transvaginal 02/28/23 [facility] Evaluation note Note Date & Type Note Facility Evaluation note No assessment information availa [facility] Work Phone: Hospital course Narrative Note Date & Type Note Facility Hospital course Narrative No data available for this section [facility] Hospital Discharge instructions Note Date & Type Note Facility Hospital Discharge instructions No data available for this section [facility] Progress note Note Date & Type Note Facility Progress note No data available for this section [facility] Summary Purpose Family History No Family History Records FoundNo Family History Records FoundNo Family History Records Found No data available for this section No Family History Records FoundNo Family History Records Found No data available for this section No Family History Records Found Advance Directives No Advanced Directives Records Found Advance Directive Response Recorded Date/ Time Living Will No June 01, 2 014 8:44pm Power of Electrical Maintenance Mechanic No June 01, 2013 8:44pm Advance Directive Response Recorded Date/ Time Living Will No June 01 014 7:44pm Power of Electrical Maintenance Mechanic No June 01, 2013 7:44pm Chief Complaint and Reason for Visit Chief Complaint IRON DEFICIENCY Additional Source Comments INFORMATION SOURCE (unrecogn ized section and content) DATE CREATED AUTHOR 02/09/2020 [facility] DATE CREATED AUTHOR AUTHOR'S ORGANIZ ATION 02/11/[address] [facility] DATE CREATED AUTHOR AUTHOR'S ORGANIZ ATION 05/21/2021 [facility] DATE CREATED AUTHOR AUTHOR'S ORGANIZ ATION 06/10/2023 [facility] ([place]) DATE CREATED AUTHOR AUTHOR'S ORGANIZ ATION 01/20/2024 [facility] DATE CREATED AUTHOR AUTHOR'S ORGANIZ ATION 2024 [facility] Goals (unrecognized section and content) Goals may be documented in a n alternate sectionGoals may be documented in an alternate sectionGoals may be documented in an alternate section No data available for this sectionGoals may be documented in an alternate section No data available for this section Care Teams (unrecognized sec tion and content) Team Status: Active Member Role Status Dates Dr. Celine Leone MD Family Provider Active Dr. Bekah Lopez MD Primary Care Provider Active Team Status: Inactive Member Role Status Dates Dr. Bekah Lopez MD Primary Care Provider Active Dr. Theresa Sheets DO Attending Provider Active Team Status: Inactive Member Role Status Dates Dr. Bekah Lopez MD Primary Care Provide r, Attending Provider, Referring Provider Active FOR RECORDS PERTAINING TO PATIENTS WHO ARE OR HAVE BEEN ENROLLED IN A CHEMICAL DEPENDENCY/SUBSTANCEABUSE PROGRAM, SOME INFORMATION MAY BE OMITTED. This clinical summary was aggregated from multiple sources. Caution should be exercised in using it in the provision of clinical care. This summary normalizes information from multiple sources, and as a consequence, information in this document may materially change the coding, format and clinical context of patient data. In addition, data may be omitted in some cases. CLINICAL DECISIONS SHOULD BE BASED ON THE PRIMARY CLINICAL RECORDS. [facility] [employer] [facility]. provides no warranty or guarantee of the accuracy or completeness of information in this document.
--- OUTSIDE RECORDS SUMMARY | 2025-01-22 06:50 | XMS RPT_ITS | CCD ---
Author Organization [facility] Care Team Providers Care Oncology Transplant Network Manager Name Role Phone CELINE LEONE MD Consulting Unavailable MURIEL GORDON Attending Unavailable MURIEL GORDON Primary Care Unavailable MURIEL GORDON Admitting Unavailable PROVIDER, UNKNOWN Consulting Unavailable TRACY GONZALEZ APRN, CNP Primary Care Phys [facility] TRACY GONZALEZ APRN, CNP Primary Care U [...] XR, # 90 tab(s), 3 Refill(s), Pharmacy: [facility], Oligomenorrhea Insulin resistance, 161, cm, 10/04/24 [...] XR, # 60 tab(s), 1 Refill(s), Pharmacy: [facility], Menorrhagia Insulin resistance, 161, cm, 05/25/23 8:40:00 EST, Height, kg, 05/25/23 8:40:00 EST, Dosing Weight Start Date: 05/25/23 Status: Ordered Start: 03-14-2023 MetFORMIN (Eqv -Glucophage XR) 500 mg oral tablet, EXTENDED RELEASE Dose : 500 mg = 1 tab(s), Oral, qDay, # 30 tab(s), 1 Refill(s), Pharmacy: [facility], Oligomenorrhea Menorrhagia, 161, cm, 03/14/23 8:48:00 [...] Test Name Value Interpretation Reference Range Facility [facility] Reporton 2024 [facility] Report . Pathology Reports Accession: Collected Date/Time: Received Date/Time: Pathologist: [id number] 10/04/2024 09:25 EDT 10/04/2024 18:00 EDT [facility] Report SPECIMEN: Specimen Description: Liquid Prep Reflex ASCUS+ Specimen: Cervical/Endocervica l Screening or Diagnostic: Screening RELEVANT HISTORY: LMP: 10/2024 SPECIMEN ADEQUACY: SATISFACTORY FOR EVALUATION Endocervical/Transfo rmational zone component present INTERPRETATION/RESUL TS: NEGATIVE FOR INTRAEPITHELIAL LESION OR MALIGNANCY COMMENT: This Pap Test was successfully processed and evaluated with the assistance of the [employer] ThinPrep Test Imaging System. Verified by Pathology report verified by [facility] Screened by: ASHLEY Electronically signed by Fatou KOVACS (ASCP) Sign-Out Date: 10/11/2024 11:27 Performing Lab: [facility], [address] [place] [address] Pathology Dept Disclaimer The Pap test is a screening test for cervical cancer. As evidenced by published data, it is subject to both inherent false negative and false positive results. Your patient's results should be interpreted in context with pertinent clinical history including gynecological examination. Normal [facility] Urgent Care Visit Reporton 1 Urgent Care Visit Report [facility] 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 No [id number] products taken to assist. Patient requesting screening [...] Coding Le (more content not included)... Normal [facility] Basic Metabolic Profile (BMP )on 07-25-2023 BUN/CRE 21.0 RATIO High 10-20 [facility] Comment on above: Performed By: #### L 500.2500 #### [facility] [address] [place], [address] CA,Total 9.5 mg/dL Normal 8.5-10.1 [facility] Comment on above: Performed By: #### L 500.2500 #### [facility] [address] [place], [address] Chloride [Moles/Vol] 105 mmol/L Normal 98-107 [facility] Comment on above: Performed By: #### L 500.2500 #### [facility] [address] [place], [address] CO2 [Moles/Vol] 28.0 mmol/L Normal 21.0-32.0 [facility] Comment on above: Performed By: #### L 500.2500 #### [facility] [address] [place], [address] Creatinine [Mass/Vol] 0.62 mg/dL Normal 0.55-1.[address] [facility] Comment on above: Result Comment: The validity of the calculated GFR GFRAA in patients over 70 years has not been determined. Clinical correlation is essential. Performed By: #### L 500.2500 #### [facility] [address] [place], [address] EST GFR - AA 151 mL/min Normal >60 [facility] Comment on above: Result Comment: Afri can Bol[place]ian GFR Calc Performed By: #### L 500.2500 #### [facility] [address] [place], [address] GAP 4 Low 5-15 [facility] Comment on above: Performed By: #### L 500.2500 #### [facility] [address] [place], [address] GFR/1.73 sq M.predicted among non-blacks MDRD (S/P/Bld) [Vol rate/Area] 125 mL/min/{1.73_m2} Normal >60 [facility] Comment on above: Result Comment: Non- GFR Calc Performed By: #### L 500.2500 #### [facility] [address], [address] Glucose [Mass/Vol] 91 mg/dL Normal 74-106 [facility] Comment on above: Performed By: #### L 500.2500 #### [facility] [address] [place], [address] Potassium [Moles/Vol] 4.1 mmol/L Normal 3.5-5.[address] [facility] Comment on above: Performed By: #### L 500.2500 #### [facility] [address] [place], [address] Sodium [Moles/Vol] 137 mmol/L Normal 136-145 [facility] Comment on above: Performed By: #### L 500.2500 #### [facility] [address] [place], [address] Urea nitrogen [Mass/Vol] 13 mg/dL Normal 7-18 [facility] Comment on above: Performed By: #### L 500.2500 #### [facility] [address] [place], [address] Basophil percentageOrdered B y: Bekah Lopez on 07-25-2023 Chloride [Moles/Vol] 105 mmol/L 98-107 [facility] Glucose [Mass/Vol] 91 mg/dL 74-106 [facility] Potassium [Moles/Vol] 4.1 mmol/L 3.5-5.[address] [facility] Sodium [Moles/Vol] 137 mmol/L 136-145 [facility] - Chemistry and C hemistry - challengeOrdered By: Bekah Lopez on 07-25-2023 CO2 [Moles/Vol] 28.0 mmol/L 21.0-32.0 [facility] Urea nitrogen/Creatinine [Mass ratio] 21.0 mg/mg 10-20 [facility] No Panel InformationOrdered By: Bekah Lopez on 07-25-2023 Estimated GFR (MDRD) Amer 151 mL/min >60 [facility] Comment on above: GFR Calc Estimated GFR (MDRD) Non-Af Amer 125 mL/min >60 [facility] Comment on above: Non- GFR Calc Serum or plasma calcium mehran urement (mass/volume)Ordered By: Bekah Lopez on 07-25-2023 Calcium [Mass/Vol] 9.5 mg/dL 8.5-10.1 [facility] Serum or plasma creatinine m easurement (mass/volume)Ordered By: Bekah Lopez on 07-25-2023 Creatinine [Mass/Vol] 0.62 mg/dL 0.55-1.[address] [facility] Comment on above: The validity of the calculated GFR & GFRAA in patients over 70 years has not been determined. Clinical correlation is essential. Serum or plasma urea nitroge n measurement (mass/volume)Ordered By: Bekah Lopez on 07-25-2023 Urea nitrogen [Mass/Vol] 13 mg/dL 7-18 [facility] Thin prep Papanicolaou smear with manual screeningOrdered By: Bekah Lopez on 07-25-2023 Thin prep Papanicolaou smear with manual screening 4 5-15 [facility] US PELVIS NON-OB W/TRANSVAGI NALon 06-03-2023 [...] 06/03/2023 4:16:44 PM Ordering Provider: MACKENZIE [facility] ANDRO 03-03-2023 Androstenedione LCMS 90 ng/dL Normal 41-262 [facility]) Comment on above: Result Comment: This test was developed and its performance characteristics determined by [employer]. It has not been cleared or approved by the Food and Drug Administration. Performed At: [address] [id number] Salvador Haile MD Ph:[phone] Performed By: #### 0 [id number] #### [address] [address] DHEASon 03-01-2023 DHEA-SO4 348.63 mcg/dL Normal 25.90-460.20 [facility]) Comment on above: Result Comment: No te - New Reference Range in effect 19 Performed By: #### P ROL, TESTO, INSLN, DHEAS #### [address] [address] #### VIDH, GLU #### [address] [address] GLUon 03-01-2023 Glucose [Mass/Vol] 105 mg/dL Normal 70-105 [facility] ([place]) Comment on above: Performed By: #### P ROL, TESTO, INSLN, DHEAS #### [place] [address] #### VIDH, GLU #### [address] [address] INSLNon 03-01-2023 Insulin 43.39 munit/L High 2.60-37.60 [facility] ([place]) Comment on above: Performed By: #### P ROL, TESTO, INSLN, DHEAS #### [place] [address] #### VIDH, GLU #### [address] [address] PROLon 03-01-2023 Prolactin 8.3 ng/mL Normal 2.0-30.0 [facility] ([place]) Comment on above: Performed By: #### P ROL, TESTO, INSLN, DHEAS #### [place] [address] #### VIDH, GLU #### [address] [address] TESTOon 03-01-2023 Testosterone Lvl 29.57 ng/dL Normal [facility] ([place]) Comment on above: Result Comment: Norm al Reference Ranges for Females: Female Premenopause Age 21-60 9.01-47.94 ng/dL Female Postmenopause Age 45-89 <7.00-45.62 ng/dL Performed By: #### P ROL, TESTO, INSLN, DHEAS #### [place] [address] #### VIDH, GLU #### [address] [address] VIDHon 03-01-2023 Vit. D 25-Hydroxy 19.7 ng/mL Normal [facility] ([place]) Comment on above: Result Comment: Inte rpretive Values Based on Total 25([place]) Vitamin D: Deficient <20 ng/mL Insufficient 20 - <30 ng/mL Sufficient 30-100 ng/mL Performed By: #### P ROL, TESTO, INSLN, DHEAS #### [place] [address] #### VIDH, GLU #### [facility] [address] [address] Basophil percentageOrdered B y: Bekah Lopez on 12-08-2022 WBC (Bld) [#/Vol] 6.3 10*3/uL 4.4-11.0 [facility] Blood erythrocytes count (nu mber/volume)Ordered By: Bekah Lopez on 12-08-2022 RBC (Bld) [#/Vol] 4.27 10*6/uL 4.2-5.4 [facility] [place] Blood hemoglobin measurement (mass/volume)Ordered By: Bekah Lopez on 12-08-2022 Hemoglobin (Bld) [Mass/Vol] 12.5 g/dL 12.0-15.0 [facility] Blood platelet mean volumeOr dered By: Bekah Lopez on 12-08-2022 Platelet mean volume (Bld) [Entitic vol] 9.1 fL 6.2-12.0 [facility] Determination of erythrocyte mean corpuscular volume (MCV)Ordered By: Bekah Lopez on 12-08-2022 MCV (RBC) [Entitic vol] 87.1 fL 81-99 [facility] Hematocrit Auto (Bld) [Volum e fraction]Ordered By: Bekah Lopez on 12-08-2022 Hematocrit (Bld) [Volume fraction] 37.2 % 37-47 [facility] - Hematology and Cell countsOrdered By: Bekah Lopez on 12-08-2022 Erythrocyte distribution width (RBC) [Entitic vol] 39.9 fL 35.1-43.9 [facility] Erythrocyte distribution width (RBC) [Ratio] 12.7 % 11.6-14.6 [facility] MCH (RBC) [Entitic mass] 29.3 pg 27.0-32.0 [facility] MCHC Auto (RBC) [Mass/Vol]Or dered By: Bekah Lopez on 12-08-2022 MCHC (RBC) [Mass/Vol] 33.6 g/dL 32-[address] [facility] No Panel InformationOrdered By: Bekah Lopez on 12-08-2022 Thyroid Stimulating Hormone (TSH) 2.09 uIU/mL 0.358-3.74 [facility] Platelets bldOrdered By: Nguyễn Lopez on 12-08-2022 Platelets (Bld) [#/Vol] 322 10*3/uL 150-450 [facility] - Chemistry and C hemistry - challengeOrdered By: Dr. Sheets on 05-25-2022 Free T4 [Mass/Vol] 0.95 ng/dL 0.76-1.46 [facility] No Panel InformationOrdered By: Dr. Sheets on 05-25-2022 Follicle Stimulating Hormone 7.0 mIU/mL [facility] Comment on above: NORMAL REFERENCE RAN GES FEMALE FOLLICULAR 2.3 - 12.6 mIU/mL MID-CYCLE PEAK 5.2 - 17.5 mIU/mL LUTEAL 1.7 - 12.9 mIU/mL POST-MENOPAUSAL ON MHT 5.9 - 72.8 mIU/mL NOT ON MHT 12.7 - 132.2 mlU/mL MALE 0.7 - 10.8 mIU/mL Luteinizing Hormone 2.1 mIU/mL [facility] [place] Comment on above: NORMAL REFERENCE RAN GES FEMALE FOLLICULAR 1.9 - 26.2 mIU/mL MID-CYCLE PEAK 22.8 - 76.1 mIU/mL LUTEAL 0.6 - 16.6 mIU/mL POST-MENOPAUSAL ON MHT 1.1 - 52.4 mIU/mL NOT ON MHT 8.6 - 61.8 mIU/mL MALE 1.2 - 10.6 mIU/mL Thyroid Stimulating Hormone (TSH) 3.55 uIU/mL 0.358-3.74 [facility] Serum or plasma estradiol (E 2) measurement (mass/volume)Ordered By: Dr. Sheets on 05-25-2022 E2 [Mass/Vol] 40.6 pg/mL [facility] Comment on above: NORMAL REFERENCE RAN [...] 05-25-2022 Progesterone [Mass/Vol] 0.84 ng/mL See Comment [facility] Comment on above: Progesterone Referen ce [...] Sheets on 05-25-2022 Prolactin [Mass/Vol] 16.5 ng/mL [facility] Comment on above: NORMAL REFERENCE RAN GES FEMALE NON- 2.2 - 30.3 ng/mL 8.1 - 347.6 ng/mL POST-MENOPAUSAL 0.7 - 31.5 ng/mL MALE 2.5 - 17.4 ng/mL Whole blood hemoglobin A1c/t otal hemoglobin ratio (mass fraction)Ordered By: Dr. Sheets on 05-25-2022 HbA1c (Bld) [Mass fraction] 5.6 % 3.8-5.6 [facility] Comment on above: Normal < 5.7 % Predi abetic 5.7 - 6.4 % Diabetic >or= 6.5 % Please note range changes. Basophil percentageon 2021 Chloride [Moles/Vol] 105 mmol/L 98-107 [facility] Work Phone: Glucose [Mass/Vol] 95 mg/dL 74-106 [facility] Work Phone: Potassium [Moles/Vol] 3.9 mmol/L 3.5-5.[address] [facility] Work Phone: Sodium [Moles/Vol] 137 mmol/L 136-145 [facility] Work Phone: Laboratory - Chemistry and C hemistry - challengeon 09-01-2021 CO2 [Moles/Vol] 24.0 mmol/L 21.0-32.0 [facility] Work Phone: Urea nitrogen/Creatinine [Mass ratio] 23.3 mg/mg 10-20 [facility] Work Phone: No Panel Informationon 09-01 Estimated GFR (MDRD) Amer 147 mL/min >60 [facility] Work Phone: Comment on above: GFR Calc Estimated GFR (MDRD) Non-Af Amer 121 mL/min >60 [facility] Work Phone: Comment on above: Non- GFR Calc Serum or plasma calcium mehran urement (mass/volume)on 09-01-2021 Calcium [Mass/Vol] 9.5 mg/dL 8.5-10.1 [facility] Work Phone: Serum or plasma creatinine m easurement (mass/volume)on 09-01-2021 Creatinine [Mass/Vol] 0.64 mg/dL 0.55-1.[address] [facility] Work Phone: Comment on above: The validity of the calculated GFR & GFRAA in patients over 70 years has not been determined. Clinical correlation is essential. Serum or plasma ferritin angelia surement (mass/volume)on 09-01-2021 Ferritin [Mass/Vol] 24 ng/mL 8-252 [facility] [place] Work Phone: Serum or plasma urea nitroge n measurement (mass/volume)on 09-01-2021 Urea nitrogen [Mass/Vol] 15 mg/dL 7-18 [facility] Work Phone: Thin prep Papanicolaou smear with manual screeningon 09-01-2021 Thin prep Papanicolaou smear with manual screening 8 5-15 [facility] Work Phone: CNOVon 06-30-2020 CNOV Office Visit (UCWSTR) LUIS EID ([id number]) 2000 F Date Time Provider Department 06/30/20 [...] by JERMAN JC MD on 06/30/20 Normal [facility] CORONAVIRUS PCR [CCL]on COVID 19 Result COMMODITY ANALYST Negative Normal [facility] [place] [facility] Comment on above: Result Comment: Nega tive for COVID19 (SARS CoV2) by PCR. This test was developed and its performance characteristics determined by [facility] [place]. This test has been authorized by FDA under an Emergency Use Authorization (EUA). This test has been validated in accordance with the FDA's Guidance Document Policy for Diagnostics Testing in Laboratories Certified to Perform High Complexity Testing under CLIA prior to Emergency use Authorization for Coronavirus Disease 2019 during the Public Health Emergency issued on June 02, [place] [address] Oj Roque III, M.D. [id number] Performed By: #### 2 [address] #### [place] [address] COVID 19 Source COMMODITY ANALYST Nasopharyngeal Swab Normal [facility] Comment on above: Result Comment: Shobha ected on 02/07 AT 0811: Previously reported as NASOPHARYNGEAL Performed By: #### 2 11420 #### [facility],[address] [place] [address] Coronavirus 2019on 0 COVID 19 Result COMMODITY ANALYST Normal Negative for COVID19 (SARS CoV2) by PCR. [facility] Comment on above: Result Comment: Nega tive for This test was developed and its performance characteristics determined by [facility] [place]. This test has been authorized by FDA [...] developed and its performance characteristics determined by [facility] [place]. This test has been authorized by FDA [...] developed and its performance characteristics determined by [facility] [place]. This test has been authorized by FDA [...] 2019. Performed By: #### C OVID #### [facility] Reference [address], [place] [address] Coronavirus 2019on 0 COVID 19 Source COMMODITY ANALYST Normal [facility] Comment on above: Result Comment: Naso pharyngeal Corrected on 02/07 AT 0811: Previously reported as NASOPHARYNGEAL Swab Corrected on 02/07 AT 0811: Previously reported as NASOPHARYNGEAL Performed By: #### C OVID #### [facility] Reference [address] [place], [place] [address] Encounters Encounter Date Encounter Type Care Provider Facility Start: 10-04-2024 End: 10-08-2024 ambulatory TRACY JUDGE ORAL SURGERY PHYSICIAN - DISCHARGE SPECIALIST Facility:[facility] Start: 10-04-2024 End: 10-08-2024 Encounter for gynecological examination (general) (routine) without abnormal findings JEANCARLOS LOGAN Facility:[facility] Start: 10-04-2024 End: 10-08-2024 Outreach Lab JEANCARLOS LOGAN ORAL SURGERY PHYSICIAN-DISCHARGE SPECIALIST [facility] Start: 01-18-2024 End: 01-18-2024 ambulatory Bekah Lopez Facility:[facility] Start: 07-25-2023 End: 07-25-2023 ambulatory [facility] Work Phone: Start: 07-25-2023 End: 07-25-2023 Patient encounter procedure [facility] Work Phone: Start: 07-25-2023 End: 07-25-2023 ambulatory Bekah Lopez Facility:[facility] Start: 06-03-2023 End: 06-04-2023 ambulatory MACKENZIE AGUILAR MD Facility:B Start: 06-03-2023 End: 06-03-2023 Patient encounter procedure MACKENZIE AGUILAR MD [facility] Start: 06-01-2023 ambulatory TRACY Anne FREDI ANNIA ORAL SURGERY PHYSICIAN - DISCHARGE SPECIALIST Facility:[facility] Start: 03-01-2023 End: 03-02-2023 ambulatory MACKENZIE AGUILAR MD Facility:[facility] Start: 12-08-2022 End: 12-08-2022 ambulatory [facility] Work Phone: Start: 12-08-2022 End: 12-08-2022 [facility] Start: 05-25-2022 End: 05-25-2022 ambulatory [facility] Work Phone: Start: 05-25-2022 End: 05-25-2022 Patient encounter procedure [facility], [place] [employer] Start: 09-01-2021 End: 09-01-2021 Patient encounter procedure [facility] Start: 02-06-2020 End: 02-06-2020 Patient encounter procedure CELINE ARTEAGA [facility] Procedures Date Procedure Procedure Detail Performing Clinician None (qualifier value) KAIT AGUILAR MD Plan of Treatment Date Care Activity Detail Author 17-Hydroxyprogestero ne [Mass/volume] in Serum or Plasma [facility] Payers Date Payer Category Payer Private Health Insurance [id number] 2023 Unknown [id number] 2023 Self-pay [id number] 2000 Unknown [id number] [id number] [id number] 2000 Unknown [id number] 2.16.8 [id number] 2000 Unknown [id number] 2.16.8 [id number] 2000 Unknown [id number] 2.16.8 [id number] 2000 Unknown [id number] 2.16. [id number] Unknown [id number] Unknown [id number] Unknown [id number] 2.16.8 [id number] Unknown [id number] 2.16.8 [id number] Social History Date Type Detail Facility Start: 06-01-2013 End: 06-01-2013 Tobacco smoking status HIIS Unknown if ever smoked [facility] Start: 2000 Sex Assigned At Female [facility] Start: 02-28-2023 End: 07-25-2023 Tobacco smoking status Never smoked tobacco (finding) [facility] Sex Assigned At [facility] Sex Female (finding) [facility] Clinical Note 06-03-2023 Note Date & Type [...] Sign Date: 06/03/2023 4:16:44 PM Ordering Provider: [facility] Progress note 06-30-2020 Note Date & Type Note Facility 06-30-2020 Note HNO ID: [id number] Author: Jerman Jc Service: ? Author Type: [...] or failure to improve. Jerman Jc MD [facility] Evaluation + Plan note Radiology Note Date & Type Note Facility Evaluation + Plan note Future Appointments Appointment Date:06/13/2023 01:00:00 PM Scheduled Provider: Location:[facility] Appointment Type:NUT Diet Visit Individual Appointment Date:07/25/2023 10:00:00 AM Scheduled Provider:MACKENZIE AGUILAR MD Location:[facility] Appointment Type: OV Future Scheduled TestsUS Pelvis Non-OB W/Transvaginal 02/28/23 [facility] Evaluation note Note Date & Type Note Facility Evaluation note No assessment information availa [facility] Work Phone: Hospital course Narrative Note Date & Type Note Facility Hospital course Narrative No data available for this section [facility] Hospital Discharge instructions Note Date & Type Note Facility Hospital Discharge instructions No data available for this section [facility] Progress note Note Date & Type Note Facility Progress note No data available for this section [facility] Summary Purpose Family History No Family [...] June 01, 2 014 8:44pm Power of Quality Assurance Consultant No June 01, 2013 8:44pm Advance Directive Response Recorded Date/ Time Living Will No June 01 014 7:44pm Power of Quality Assurance Consultant No June 01, 2013 7:44pm Chief Complaint and Reason for Visit Chief Complaint IRON DEFICIENCY Additional Source Comments INFORMATION SOURCE (unrecogn ized section and content) DATE CREATED AUTHOR 02/09/2020 [facility] DATE CREATED AUTHOR AUTHOR'S ORGANIZ ATION 02/11/2020 [facility] DATE CREATED AUTHOR AUTHOR'S ORGANIZ ATION 05/21/2021 [facility] DATE CREATED AUTHOR AUTHOR'S ORGANIZ ATION 06/10/2023 [facility] ([place]) DATE CREATED AUTHOR AUTHOR'S ORGANIZ ATION 01/20/2024 [facility] DATE CREATED AUTHOR AUTHOR'S ORGANIZ ATION 2024 [facility] Goals (unrecognized section and content) Goals may [...] BE BASED ON THE PRIMARY CLINICAL RECORDS. [facility] [employer] [facility]. provides no warranty or guarantee of the accuracy or completeness of information in this document.
[2025-01-22 08:29] LABS: Anion Gap 10 (5-15); BUN 16 mg/dL (4-19); BUN/Creat Ratio 21.3 RATIO (10-20); Calcium,Total 8.6 mg/dL (7.6-11.0); Carbon Dioxide 25.6 mmol/L (21.0-32.0); Chloride 103 mmol/L (98-108); Glucose 90 mg/dL (70-99); Potassium 4.2 mmol/L (3.3-5.1)
== END | disposition home or self-care (01) ==
LOC: LAB 06:48
PROVIDERS: PCP Family Medicine; Referring Provider Family Medicine; Visit Provider Family Medicine
DX: I10 Essential (primary) hypertension (principal)
CPT/HCPCS: 36415; 80048

== ENCOUNTER → 2025-01-24 | Outpatient (CLI) | payer OTHER, SELFPAY ==
[2025-01-24 16:38] LABS: Color, Urine Yellow (Yellow); Glucose, Dipstick Normal (Normal); Ketone-Dipstick Negative (Negative); Leukocyte Esterase-Dipstick Negative /ul (Negative); Nitrite-Dipstick Negative (Negative); Occult Blood-Urine 25 /ul (Negative); Protein-Dipstick Negative (Negative); Specific Gravity, Urine 1.015 (1.002-1.030); Urine Bilirubin Dipstick Negative (Negative)
== END | disposition home or self-care (01) ==
LOC: LAB 15:51
PROVIDERS: PCP Family Medicine; Referring Provider Family Medicine; Visit Provider Family Medicine
DX: R30.0 Dysuria (principal)
CPT/HCPCS: 81002; 87086; 87088